=== PATIENT | male | born 1985 | race Asian ===

== ENCOUNTER → 2024-02-20 15:30 | Outpatient (REF) | payer OTHER, SELFPAY ==
[2024-02-22 18:36] LABS: Protein S Total Antigen 105 % (84-134)
[2024-02-22 21:14] LABS: Anti-Thrombin III Activity 83 % (76-128)
[2024-02-23 01:32] LABS: Beta-2-Glycoprotein I Ab. IgG <10 SGU (<=20); Beta-2-Glycoprotein I Ab. IgM <10 SMU (<=20)
[2024-02-23 07:32] LABS: Cardiolipin IgA Antibody <10 APL (<=11); Cardiolipin IgM Antibody <10 MPL (<=12); Cardiolipin Igg Antibody <10 GPL (<=14)
[2024-02-24 10:59] LABS: PT (F2) G20210A Variant Negative; Pt Gene Variant-PCR Specimen Whole Blood
[2024-02-24 23:58] LABS: Anti-Xa Qualitative Interp Not Performed (Not Present); Anticoagulant Med Neutralizati Not Performed (Not Performed); Hexagonal Phospholipid Confirm Not Performed s (<=7.9); Neutralized PTT-LA Ratio Not Performed (<=1.20); Neutralized dRVTT Screen Ratio Not Performed (<=1.20); PTT-LA Ratio 1.06 (<=1.20); Prothrombin Time 12.7 s (12.0-15.5); Thrombin Time Not Performed s (<=19.5); dRVTT 1.1 Mix Ratio Not Performed (<=1.20); dRVTT Confirmation Ratio Not Performed (<=1.20); dRVTT Screen Ratio 0.88 (<=1.20)
[2024-02-25 14:58] LABS: Factor V Leiden Negative; Factor V Leiden Specimen Whole Blood
== END ==
LOC: RAD 15:30
PROVIDERS: ATTENDING PHYSICIAN Internal Medicine Hematology & Oncology
DX: I82.621 Acute embolism and thrombosis of deep veins of right upper extremity (principal)
CPT/HCPCS: 36415; 81240; 81241; 85300; 85305; 85610; 85613; 85730; 86146; 86147; 93971

== ENCOUNTER 2025-07-31 16:16 | Emergency (ER) | payer OTHER, SELFPAY ==
[2025-07-31 16:23] VITALS: BP 146/93
[2025-07-31 16:48] LABS: Hematocrit 47.6 % (39.0-52.0); Hemoglobin 17.2 g/dL (13.0-18.0); Mean Corp Hgb Conc. 36.1 g/dL (33.0-37.0); Mean Corpuscular Volume 84.7 fL (80.0-94.0); Nucleated Red Blood Cells % 0 % (-); Platelet Count 210 10^3/uL (130-400); Red Cell Dist. Width 11.5 % (11.5-14.5)
[2025-07-31 16:57] LABS: ALT (SGPT) 90 U/L (0-50); AST (SGOT) 39 U/L (17-59); Albumin 4.7 g/dl (3.5-5.0); Alkaline Phosphatase 100 U/L (38-126); Blood Urea Nitrogen 18 mg/dl (9-20); Calcium 9.8 mg/dl (8.4-10.2); Carbon Dioxide 24 mmol/L (22-30); Chloride 106 mmol/L (98-107); Glucose 96 mg/dl (70-99); Potassium 4.2 mmol/L (3.5-5.1); Sodium 137 mmol/L (135-145); Total Protein 8.0 g/dl (6.3-8.2); eGFR > 60.00
[2025-07-31 17:06] LABS: D-Dimer 0.34 ug/mlFEU (0.00-0.50)
[2025-07-31 17:08] LABS: Troponin I < 0.012 ng/ml
--- NOTE | 2025-07-31 17:35 | ED.GENMED ---
History of Present Illness
General
Chief Complaint: Chest Pain
Source: patient
Exam Limitations: none
Time Seen by Provider: 07/31/25 17:24
Nursing documentation reviewed up to this point in time: agreed with
History of Present Illness
History of Present Illness:
Patient to ED with complaint of right upper arm pain. Pain started yesterday. He has a history of right subclavian DVT and reports pain feels the same. 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
Pain started yesterday during this activity. Brought self to ED for eval.
Past History
Past History
ED Past Medical History: Other (Right subclavian DVT, Paget Shroetter syndrome)
ED Past Surgical History: Cholecystectomy
Social History
Tobacco: Smoker
Alcohol: Occasional
Drug: None
Personal:
Living: with family
Employment: Employed (sales route driver helper)
Review of Systems
Review of Systems
Allergies reviewed?: Yes
All Other Systems: ROS reviewed and negative except as documented in HPI and ROS
Constitutional: Reports no symptoms
EENT: Reports no symptoms
Respiratory: Reports no symptoms
Cardiac: Reports chest pain
ABD/GI: Reports no symptoms
Musculoskeletal: Reports other (pain to right upper arm)
Skin: Reports no symptoms
Neurological: Reports no symptoms
Psychiatric: Reports no symptoms
Phy Exam
General Physical Exam
General Presentation: well appearing and mild distress
General age: appears stated age
General Skin: warm and dry
General Habitus: normal
General Hydration: appears well hydrated
Cardiovascular Exam
Cardiovascular Exam: regular rate/rhythm and no edema
Pulmonary Exam
Pulmonary Exam: lungs clear and no respiratory distress
Musculoskeletal Exam
Musculoskeletal Exam: neuro vasc intact (no swelling to RUE)
Skin Exam
Skin Exam: normal color, warm/dry and no rash
Psychiatric Exam
Psychiatric Exam: normal mood/affect
Scores
Heart Score for Chest Pain Patients
STEMI patient?: No
History: Slightly or Non-Suspicious
ECG: Normal
Age: </= 45 years
Risk Factors: 1 or 2 Risk Factors
Troponin: </= Normal Limit
Heart Score for Chest Pain Patients: 1
Heart Score Risk: 2.5% MACE over next 6 weeks
Course
Orders/Labs/Results
Orders:
Orders
07/31/25 16:18
Electrocardiogram (*1) Urgent
Reason for Study: Chest Pain
EKG- Treatment ONCE
07/31/25 16:34
Complete Blood Count/With Diff Urgent
Comprehensive Metabolic Panel Urgent
D-Dimer Urgent
Troponin I Urgent
07/31/25 17:30
Venous Doppler Upr Ext Right [US Periph Venous UPPER Ext RT] Urgent
Comment:
Reason For Exam: right upper arm pain, history of right subclavian
07/31/25 17:32
Ketorolac [Toradol] 60 mg IM NOW STA
Abnormal Lab Results
07/31/25
16:34
Immature Gran % 0.7 H %
(0-0.5)
ALT 90 H U/L
(0-50)
07/31/25 16:34
07/31/25 16:34
Vital Signs
Initial and Last Documented VS:
Initial Vital Signs
Temp Pulse Resp BP Pulse Ox
98.1 F 84 20 146/93 98
07/31/25 16:23 07/31/25 16:23 07/31/25 16:23 07/31/25 16:23 07/31/25 16:23
Last Documented Vital Signs
Temp Pulse Resp BP Pulse Ox
97.8 F 59 19 113/79 97
07/31/25 18:43 07/31/25 18:45 07/31/25 18:45 07/31/25 18:40 07/31/25 18:45
*Radiology
Radiology exam reviewed: radiology read reviewed
*Pulse Oximetry
SaO2: 98
Oxygen Mode of Delivery: Room air
Patient hypoxic: no
*Critical Care Note
Total Time (30-74mins, 75-104mins- exclusive of procedures): Not Applicable
Update Note
Update Note:
Patient to ED with right upper arm pain , ant chest pain x 2 days. He has a history of right subclavian DVT, paget Schoretter syndrome. No longer on blood thinners. NO joint swelling. RUE neurovasc. intact. US tonight neg for DVT. Labs reviewed,
no concerning findings, Troponin and ddimer neg, EKG NSR. Given dose of Toradol in ED with improvement in comfort. WIll discharge home, close follow up with PCP. Given instructions on s/s to return to ED and he is agreeable to plan.
ED Attending Note
-
Portions of this chart may have been created with voice recognition software.� Occasional wrong word or��sound alike� substitutions may have occurred due to the inherent limitations of voice recognition software.
Discharge Plan
Departure
Patient Disposition: Home (Routine Discharge)
Date of Disposition: 07/31/25
Time of Disposition: 18:55
Patient with high blood pressure during this ER visit?: No
Condition: Good
Covid-19: Not Applicable
Discharge Problem:
Pain in right arm
Instructions: Musculoskeletal Pain
Prescriptions:
New
hydrocodone-acetaminophen 5-325 mg tablet
1 tab PO Q4H PRN (Reason: Pain) Qty: 10 0RF
No Action
Eliquis DVT-PE Treat 30D Start 5 mg (74 tabs) tablets,dose pack
See Rx Instructions .ROUTE .COMPLEX Qty: 74 0RF
Rx Instructions:
orally per package directions
10 mg twice a day for 7 days then reduce to 5 mg twice a day then on
nicotine 14 mg/24 hr patch 24 hour
1 patch transdermal DAILY Qty: 14 0RF
Referrals:
NONE,* [Family Provider, Internal Medicine]
Activity Restrictions/Additional Instructions:
Follow up with your family doctor in the AM. Return to the emergency department immediately for any changes in/worsening of your symptoms.
Interventions
Interventions:
*Risk Screen - Suicide Last Done: 07/31/25 16:23
*Neglect/Abuse Screening Last Done: 07/31/25 16:23
ED- Cardiac Assessment Last Done: 07/31/25 18:45
Discharge Date and Time
Print Language: GHANAIAN
[2025-07-31 18:32] VITALS: BMI 30.5
[2025-07-31] MEDS: TORADOL 60 MG IM (18:34)
[2025-07-31 18:40] VITALS: BP 113/79
[2025-07-31 19:00] VITALS: BP 115/78
== END 2025-07-31 19:11 | disposition home or self-care (01) ==
LOC: EMR 16:16
PROVIDERS: EMERGENCY PHYSICIAN Emergency Medicine
DX: M79.601 Pain in right arm (principal); Z86.718 Personal history of other venous thrombosis and embolism; F17.200 Nicotine dependence, unspecified, uncomplicated; Z90.49 Acquired absence of other specified parts of digestive tract
CPT/HCPCS: 96372; 99284; 80053; 84484; 85025; 85379; 93005; 93971